=== PATIENT | male | born 1950 | race African-American/Black ===

== ENCOUNTER 2023-03-08 08:53 | Outpatient (CLI) | payer MEDICARE | END 2023-03-08 08:54 | disposition home or self-care (01) | LOC: CSHULT 08:53 | PROVIDERS: ATTEND Family Medicine | DX: K40.90 Unilateral inguinal hernia, without obstruction or gangrene, not specified as recurrent (principal) | CPT/HCPCS: 76856 ==

== ENCOUNTER 2023-11-13 22:32 | Inpatient (IN) | payer MEDICARE ==
[2023-11-14] MEDS ORDERED: Calcium Carbonate 500 MG ChewTAB PO PRN (00:39)
[2023-11-14] MEDS ORDERED: Senokot S 8.6-50 MG TAB PO PRN (00:39)
[2023-11-14] MEDS ORDERED: Guaifenesin DM 100-10/5 ML UDCUP PO PRN (00:39)
[2023-11-14] MEDS ORDERED: Dextrose 5% in Water 1,000 ML IV PRN (00:39)
[2023-11-14] MEDS ORDERED: Glucagon 1 MG/ML KIT IM PRN (00:39)
[2023-11-14] MEDS ORDERED: Ondansetron PF 4 MG/2 ML Vial IVP PRN (00:39)
[2023-11-14] MEDS ORDERED: HumaLOG 300 UNITS/3 ML VIAL SC PRN (00:39)
[2023-11-14] MEDS ORDERED: Sodium Bicarbonate 150 MEQ in Dextrose 5% in Water 1,000 ML IV SCH (00:45)
[2023-11-14] MEDS: Albumin 25% 25 GM (100 mL) BOT IVPB SCH ×4 (02:27→20:58)
[2023-11-14 06:01] LABS: Lactic Acid 0.5 mmol/L (0.5-2.2)
[2023-11-14 06:05] LABS: Anion Gap 19 mmol/L (10-20); BUN (Urea Nitrogen) 103 mg/dL (8.4-25.7); CK (CPK) 2284 U/L (30-200); Calc. Creatinine Clearance 8 mL/min (70-130); Calcium 7.7 mg/dL (7.8-10.44); Carbon Dioxide 17 mmol/L (23-31); Chloride 101 mmol/L (98-107); Estimated GFR 5; Glucose 86 mg/dL (83-110); Potassium 4.8 mmol/L (3.5-5.1); Sodium 132 mmol/L (136-145)
[2023-11-14 06:11] LABS: #Eosinphils 0.1 10x3/uL (0.0-0.5); #Monocytes 0.7 10x3/uL (0.0-1.1); #Neutrophils 3.4 10x3/uL (1.5-8.4); %Basophils 0.2 % (0.0-2.0); %Eosinophils 2.2 % (0.0-6.0); %Lymphocytes 21.9 % (18.0-47.0); %Monocytes 12.2 % (0.0-10.0); %Neutrophils 63.1 % (40.0-75.0); Hematocrit 23.5 % (38.8-50.0); Hemoglobin 7.9 g/dL (13.5-17.5); Mean Corpuscular HGB CONC 33.6 g/dL (32.0-36.0); Mean Corpuscular Hemoglobin 28.1 pg (27.0-33.0); Mean Corpuscular Volume 83.6 fl (81.2-95.1); Mean Platelet Volume 10.4 fl (7.4-10.4); Platelet Count 191 10x3/uL (150-450); Red Blood Cell (RBC) Count 2.81 10x6/uL (4.32-5.72); White Blood Cell (WBC) Count 5.3 10x3/uL (3.5-10.5)
[2023-11-14 07:46] LABS: PTT 32.1 sec (22.0-33.0); Prothrombin Time 10.1 sec (9.5-12.1)
[2023-11-14] MEDS: NIFEdipine XL 90 MG ER.TAB PO SCH ×2 (08:51→09:05)
[2023-11-14] MEDS: Famotidine 20 MG TAB PO SCH (08:51)
[2023-11-14] MEDS: Cholecalciferol 1,000 UNITS (25 MCG) TAB PO SCH ×2 (08:52→09:04)
[2023-11-14] MEDS: hydrALAZINE 25 MG TAB PO SCH ×4 (08:52→20:58)
[2023-11-14] MEDS: Folic Acid/Vit B Comp W-C PO SCH (08:54)
[2023-11-14] MEDS ORDERED: FLU VACC QS2023(65UP)/MF59C/PF 60 MCG/0.5 ML SYRINGE IM ONE (09:00)
[2023-11-14] MEDS ORDERED: Tuberculin PPD 0.1 ML VIAL I-DERMAL SCH ×2 (09:00→23:00)
[2023-11-14] MEDS: Heparin 5,000 UNITS/ML VIAL SC SCH ×4 (09:04→20:59)
[2023-11-14] MEDS: EPOETIN ALFA-EPBX (ESRD) 10,000 UNITS/ML VIAL SC SCH (10:11)
[2023-11-14] MEDS: Rosuvastatin 20 MG TAB PO SCH (20:58)
[2023-11-14] MEDS: Dextrose 50% Abboject 50 ML SYRINGE SLOW IVP PRN (21:13)
[2023-11-14] MEDS: Dextrose 10% in Water 1,000 ML IV SCH (22:57)
[2023-11-15] MEDS ORDERED: Furosemide 40 MG (4 mL) VIAL SLOW IVP SCH (00:15)
[2023-11-15] MEDS ORDERED: Nitroglycerin 2% Ointment 1 INCH/1 GM Packet TOP SCH (01:15)
[2023-11-15 05:00] LABS: HBSAg Index 0.22 S/CO (0-0.99); Hep B Surf Ag Non-Reactive S/CO (NonReactive)
[2023-11-15] MEDS: Dextrose 50% Abboject 50 ML SYRINGE SLOW IVP PRN (06:36)
[2023-11-15] MEDS: Cholecalciferol 1,000 UNITS (25 MCG) TAB PO SCH (06:42)
[2023-11-15] MEDS: Famotidine 20 MG TAB PO SCH (06:43)
[2023-11-15] MEDS: NIFEdipine XL 90 MG ER.TAB PO SCH (06:43)
[2023-11-15 06:47] LABS: Anion Gap 18 mmol/L (10-20); BUN (Urea Nitrogen) 101 mg/dL (8.4-25.7); Calc. Creatinine Clearance 8 mL/min (70-130); Calcium 7.6 mg/dL (7.8-10.44); Carbon Dioxide 20 mmol/L (23-31); Chloride 100 mmol/L (98-107); Estimated GFR 5; Glucose 62 mg/dL (83-110); Potassium 5.2 mmol/L (3.5-5.1); Sodium 133 mmol/L (136-145)
[2023-11-15] MEDS: Heparin 5,000 UNITS/ML VIAL SC SCH ×3 (08:04→21:59)
[2023-11-15] MEDS: Folic Acid/Vit B Comp W-C PO SCH (08:14)
[2023-11-15] MEDS: hydrALAZINE 25 MG TAB PO SCH ×3 (08:35→21:58)
[2023-11-15] MEDS ORDERED: hydrALAZINE 20 MG/ML VIAL SLOW IVP SCH (09:00)
[2023-11-15] MEDS ORDERED: Bupivacaine 0.25% HCL 30 ML VIAL ONE (09:22)
[2023-11-15] MEDS ORDERED: Bupivacaine/Epinephrine 0.25% 30 ML VIAL ONE (10:18)
[2023-11-15] MEDS ORDERED: PROPOFOL 20 ML ONE (10:21)
[2023-11-15] MEDS ORDERED: Lidocaine 2% PF 100 mg/5 ml Syringe ONE (10:21)
[2023-11-15] MEDS ORDERED: Midazolam HCl 2 mg/2 ml Vial ONE (10:22)
[2023-11-15] MEDS ORDERED: fentaNYL 50 mcg/mL 1 mL Vial ONE (10:22)
[2023-11-15] MEDS ORDERED: HYDROcodone/Acetaminophen 5/325 mg Tablet PO PRN (11:57)
[2023-11-15] MEDS ORDERED: Morphine 2 MG/ML VIAL SLOW IVP PRN (11:57)
[2023-11-15 14:18] LABS: HBSAB Concentration Less than 8.00 mIU/mL; Hep B Core Total Ab Non-Reactive (NonReactive); Hep B Surf AB Non-Reactive (NonReactive); Hep C IgG Ab Non-Reactive S/CO (NonReactive); Hep C Index 0.06 S/CO (0-0.79)
[2023-11-15] MEDS: Rosuvastatin 20 MG TAB PO SCH (21:58)
[2023-11-16] MEDS: Dextrose 10% in Water 1,000 ML IV SCH (00:15)
[2023-11-16] MEDS: Cholecalciferol 1,000 UNITS (25 MCG) TAB PO SCH (08:43)
[2023-11-16] MEDS: hydrALAZINE 25 MG TAB PO SCH ×3 (08:44→20:04)
[2023-11-16] MEDS: NIFEdipine XL 90 MG ER.TAB PO SCH (08:46)
[2023-11-16] MEDS: Famotidine 20 MG TAB PO SCH (08:46)
[2023-11-16] MEDS: Folic Acid/Vit B Comp W-C PO SCH (08:47)
[2023-11-16] MEDS: Heparin 5,000 UNITS/ML VIAL SC SCH ×3 (08:48→20:07)
[2023-11-16] MEDS ORDERED: READ PPD TEST SITE PO SCH (09:00)
[2023-11-16 10:17] LABS: Hemoglobin 7.7 g/dL (13.5-17.5)
[2023-11-16 10:37] LABS: Anion Gap 20 mmol/L (10-20); BUN (Urea Nitrogen) 74 mg/dL (8.4-25.7); Calc. Creatinine Clearance 9 mL/min (70-130); Calcium 7.9 mg/dL (7.8-10.44); Carbon Dioxide 21 mmol/L (23-31); Chloride 99 mmol/L (98-107); Estimated GFR 6; Glucose 241 mg/dL (83-110); Potassium 4.8 mmol/L (3.5-5.1); Sodium 135 mmol/L (136-145)
[2023-11-16] MEDS: Acetaminophen 325 MG TAB PO PRN (19:50)
[2023-11-16] MEDS: Rosuvastatin 20 MG TAB PO SCH (20:04)
[2023-11-17] MEDS: Dextrose 10% in Water 1,000 ML IV SCH (01:12)
[2023-11-17] MEDS: Acetaminophen 325 MG TAB PO PRN ×2 (01:42→18:59)
[2023-11-17 04:36] LABS: #Eosinphils 0.2 10x3/uL (0.0-0.5); #Monocytes 1.1 10x3/uL (0.0-1.1); #Neutrophils 5.5 10x3/uL (1.5-8.4); %Basophils 0.1 % (0.0-2.0); %Eosinophils 1.8 % (0.0-6.0); %Lymphocytes 17.3 % (18.0-47.0); %Neutrophils 67.2 % (40.0-75.0); Hematocrit 21.4 % (38.8-50.0); Hemoglobin 7.1 g/dL (13.5-17.5); Mean Corpuscular HGB CONC 33.2 g/dL (32.0-36.0); Mean Corpuscular Hemoglobin 28.4 pg (27.0-33.0); Mean Corpuscular Volume 85.6 fl (81.2-95.1); Mean Platelet Volume 10.1 fl (7.4-10.4); Platelet Count 220 10x3/uL (150-450); RBC Distribution Width 12.8 % (11.5-14.5); White Blood Cell (WBC) Count 8.2 10x3/uL (3.5-10.5)
[2023-11-17 04:45] LABS: Albumin 3.3 g/dL (3.4-4.8); Anion Gap 16 mmol/L (10-20); BUN (Urea Nitrogen) 52 mg/dL (8.4-25.7); BUN/Creatinine Ratio 8.23; Calc. Creatinine Clearance 12 mL/min (70-130); Calcium 7.8 mg/dL (7.8-10.44); Carbon Dioxide 26 mmol/L (23-31); Chloride 100 mmol/L (98-107); Estimated GFR 9; Glucose 148 mg/dL (83-110); Phosphorus 3.8 mg/dL (2.3-4.7); Potassium 4.5 mmol/L (3.5-5.1); Sodium 137 mmol/L (136-145)
[2023-11-17] MEDS: NIFEdipine XL 90 MG ER.TAB PO SCH (08:43)
[2023-11-17] MEDS: hydrALAZINE 25 MG TAB PO SCH ×3 (08:43→21:04)
[2023-11-17] MEDS: Famotidine 20 MG TAB PO SCH (08:44)
[2023-11-17] MEDS: Cholecalciferol 1,000 UNITS (25 MCG) TAB PO SCH (08:44)
[2023-11-17] MEDS: Folic Acid/Vit B Comp W-C PO SCH (08:44)
[2023-11-17] MEDS: Heparin 5,000 UNITS/ML VIAL SC SCH ×3 (08:45→21:06)
[2023-11-17] MEDS: HYDROcodone/Acetaminophen 5/325 mg Tablet PO PRN ×2 (11:36→16:24)
[2023-11-17] MEDS: HumaLOG 300 UNITS/3 ML VIAL SC PRN ×2 (13:16→18:49)
[2023-11-17] MEDS: Rosuvastatin 20 MG TAB PO SCH (21:04)
[2023-11-18] MEDS: Dextrose 10% in Water 1,000 ML IV SCH ×2 (04:15→21:27)
[2023-11-18 06:12] LABS: #Eosinphils 0.2 10x3/uL (0.0-0.5); #Monocytes 1.2 10x3/uL (0.0-1.1); #Neutrophils 5.8 10x3/uL (1.5-8.4); %Basophils 0.3 % (0.0-2.0); %Eosinophils 2.1 % (0.0-6.0); %Lymphocytes 21.2 % (18.0-47.0); %Neutrophils 62.4 % (40.0-75.0); Hematocrit 21.4 % (38.8-50.0); Hemoglobin 7.1 g/dL (13.5-17.5); Mean Corpuscular HGB CONC 33.2 g/dL (32.0-36.0); Mean Corpuscular Hemoglobin 28.6 pg (27.0-33.0); Mean Corpuscular Volume 86.3 fl (81.2-95.1); Mean Platelet Volume 10.3 fl (7.4-10.4); Platelet Count 283 10x3/uL (150-450); Red Blood Cell (RBC) Count 2.48 10x6/uL (4.32-5.72); White Blood Cell (WBC) Count 9.3 10x3/uL (3.5-10.5)
[2023-11-18] MEDS: HYDROcodone/Acetaminophen 5/325 mg Tablet PO PRN ×2 (06:22→15:49)
[2023-11-18 06:27] LABS: Albumin 3.3 g/dL (3.4-4.8); Anion Gap 18 mmol/L (10-20); BUN (Urea Nitrogen) 68 mg/dL (8.4-25.7); BUN/Creatinine Ratio 8.12; Calc. Creatinine Clearance 10 mL/min (70-130); Calcium 8.2 mg/dL (7.8-10.44); Carbon Dioxide 24 mmol/L (23-31); Chloride 98 mmol/L (98-107); Estimated GFR 6; Glucose 122 mg/dL (83-110); Phosphorus 5.5 mg/dL (2.3-4.7); Potassium 4.5 mmol/L (3.5-5.1); Sodium 135 mmol/L (136-145)
[2023-11-18] MEDS: NIFEdipine XL 90 MG ER.TAB PO SCH (08:39)
[2023-11-18] MEDS: Folic Acid/Vit B Comp W-C PO SCH (08:39)
[2023-11-18] MEDS: hydrALAZINE 25 MG TAB PO SCH ×3 (08:39→21:28)
[2023-11-18] MEDS: Famotidine 20 MG TAB PO SCH (08:39)
[2023-11-18] MEDS: Heparin 5,000 UNITS/ML VIAL SC SCH ×3 (08:40→21:26)
[2023-11-18] MEDS: Cholecalciferol 1,000 UNITS (25 MCG) TAB PO SCH (08:40)
[2023-11-18] MEDS: HumaLOG 300 UNITS/3 ML VIAL SC PRN ×2 (12:01→21:27)
[2023-11-18] MEDS: Rosuvastatin 20 MG TAB PO SCH (21:26)
[2023-11-19] MEDS: HYDROcodone/Acetaminophen 5/325 mg Tablet PO PRN ×2 (03:33→20:37)
[2023-11-19 06:07] LABS: #Eosinphils 0.1 10x3/uL (0.0-0.5); #Monocytes 1.3 10x3/uL (0.0-1.1); #Neutrophils 6.2 10x3/uL (1.5-8.4); %Basophils 0.1 % (0.0-2.0); %Eosinophils 1.5 % (0.0-6.0); %Lymphocytes 16.2 % (18.0-47.0); %Monocytes 14.2 % (0.0-10.0); %Neutrophils 67.4 % (40.0-75.0); Hematocrit 24.4 % (38.8-50.0); Mean Corpuscular HGB CONC 32.8 g/dL (32.0-36.0); Mean Corpuscular Hemoglobin 28.2 pg (27.0-33.0); Mean Corpuscular Volume 85.9 fl (81.2-95.1); Mean Platelet Volume 9.8 fl (7.4-10.4); Platelet Count 319 10x3/uL (150-450); RBC Distribution Width 12.9 % (11.5-14.5); Red Blood Cell (RBC) Count 2.84 10x6/uL (4.32-5.72); White Blood Cell (WBC) Count 9.3 10x3/uL (3.5-10.5)
[2023-11-19] MEDS: Heparin 5,000 UNITS/ML VIAL SC SCH ×3 (08:40→20:33)
[2023-11-19] MEDS: NIFEdipine XL 90 MG ER.TAB PO SCH (08:40)
[2023-11-19] MEDS: hydrALAZINE 25 MG TAB PO SCH ×3 (08:41→20:32)
[2023-11-19] MEDS: Famotidine 20 MG TAB PO SCH (08:41)
[2023-11-19] MEDS: Cholecalciferol 1,000 UNITS (25 MCG) TAB PO SCH (08:41)
[2023-11-19] MEDS: Folic Acid/Vit B Comp W-C PO SCH (08:41)
[2023-11-19 09:25] VITALS: BMI 27.3
[2023-11-19] MEDS: HumaLOG 300 UNITS/3 ML VIAL SC PRN ×3 (12:18→21:35)
[2023-11-19] MEDS: Rosuvastatin 20 MG TAB PO SCH (20:33)
[2023-11-19] MEDS: Lantus 1000 UNITS/10 ML VIAL SC SCH (21:34)
[2023-11-19] MEDS: Dextrose 10% in Water 1,000 ML IV SCH (23:10)
[2023-11-20 04:03] LABS: #Eosinphils 0.2 10x3/uL (0.0-0.5); #Monocytes 1.3 10x3/uL (0.0-1.1); #Neutrophils 5.9 10x3/uL (1.5-8.4); %Basophils 0.3 % (0.0-2.0); %Eosinophils 1.6 % (0.0-6.0); %Lymphocytes 20.3 % (18.0-47.0); %Monocytes 13.7 % (0.0-10.0); %Neutrophils 63.4 % (40.0-75.0); Hematocrit 24.9 % (38.8-50.0); Mean Corpuscular HGB CONC 32.1 g/dL (32.0-36.0); Mean Corpuscular Hemoglobin 27.5 pg (27.0-33.0); Mean Corpuscular Volume 85.6 fl (81.2-95.1); Mean Platelet Volume 9.4 fl (7.4-10.4); Platelet Count 348 10x3/uL (150-450); Red Blood Cell (RBC) Count 2.91 10x6/uL (4.32-5.72); White Blood Cell (WBC) Count 9.4 10x3/uL (3.5-10.5)
[2023-11-20] MEDS: Folic Acid/Vit B Comp W-C PO SCH (09:02)
[2023-11-20] MEDS: Cholecalciferol 1,000 UNITS (25 MCG) TAB PO SCH (09:02)
[2023-11-20] MEDS: Heparin 5,000 UNITS/ML VIAL SC SCH ×3 (09:02→21:23)
[2023-11-20] MEDS: hydrALAZINE 25 MG TAB PO SCH ×3 (09:03→21:24)
[2023-11-20] MEDS: Famotidine 20 MG TAB PO SCH (09:03)
[2023-11-20] MEDS: NIFEdipine XL 90 MG ER.TAB PO SCH (09:03)
[2023-11-20] MEDS: HumaLOG 300 UNITS/3 ML VIAL SC PRN (16:55)
[2023-11-20] MEDS: Rosuvastatin 20 MG TAB PO SCH (21:23)
[2023-11-20] MEDS: Lantus 1000 UNITS/10 ML VIAL SC SCH (21:25)
[2023-11-20] MEDS: Dextrose 10% in Water 1,000 ML IV SCH (22:20)
[2023-11-21 06:23] LABS: #Eosinphils 0.1 10x3/uL (0.0-0.5); #Monocytes 1.4 10x3/uL (0.0-1.1); #Neutrophils 6.6 10x3/uL (1.5-8.4); %Basophils 0.2 % (0.0-2.0); %Eosinophils 1.3 % (0.0-6.0); %Lymphocytes 17.5 % (18.0-47.0); %Monocytes 13.7 % (0.0-10.0); %Neutrophils 66.6 % (40.0-75.0); Hematocrit 25.2 % (38.8-50.0); Hemoglobin 8.2 g/dL (13.5-17.5); Mean Corpuscular HGB CONC 32.5 g/dL (32.0-36.0); Mean Corpuscular Hemoglobin 27.9 pg (27.0-33.0); Mean Corpuscular Volume 85.7 fl (81.2-95.1); Mean Platelet Volume 9.2 fl (7.4-10.4); Platelet Count 376 10x3/uL (150-450); RBC Distribution Width 12.8 % (11.5-14.5); Red Blood Cell (RBC) Count 2.94 10x6/uL (4.32-5.72)
[2023-11-21] MEDS: Folic Acid/Vit B Comp W-C PO SCH (10:06)
[2023-11-21] MEDS: hydrALAZINE 25 MG TAB PO SCH ×4 (10:06→21:38)
[2023-11-21] MEDS: Cholecalciferol 1,000 UNITS (25 MCG) TAB PO SCH (10:07)
[2023-11-21] MEDS: Famotidine 20 MG TAB PO SCH (10:07)
[2023-11-21] MEDS: Heparin 5,000 UNITS/ML VIAL SC SCH ×3 (10:08→21:27)
[2023-11-21] MEDS: NIFEdipine XL 90 MG ER.TAB PO SCH (10:08)
[2023-11-21] MEDS: EPOETIN ALFA-EPBX (ESRD) 10,000 UNITS/ML VIAL SC SCH (10:15)
[2023-11-21] MEDS ORDERED: Heparin 10,000 UNITS/ 10 ML VIAL FS PRN (10:54)
[2023-11-21] MEDS ORDERED: Epoetin (ESRD) 10,000 UNITS/ML VIAL IVP PRN ×2 (11:16→12:00)
[2023-11-21 12:01] LABS: Anion Gap 18 mmol/L (10-20); BUN (Urea Nitrogen) 71 mg/dL (8.4-25.7); Calc. Creatinine Clearance 9 mL/min (70-130); Calcium 8.1 mg/dL (7.8-10.44); Carbon Dioxide 22 mmol/L (23-31); Chloride 100 mmol/L (98-107); Estimated GFR 6; Glucose 211 mg/dL (83-110); Potassium 4.7 mmol/L (3.5-5.1); Sodium 135 mmol/L (136-145)
[2023-11-21] MEDS: HYDROcodone/Acetaminophen 5/325 mg Tablet PO PRN (21:28)
[2023-11-21] MEDS: Rosuvastatin 20 MG TAB PO SCH (21:28)
[2023-11-21] MEDS: Lantus 1000 UNITS/10 ML VIAL SC SCH (21:30)
[2023-11-22 04:00] LABS: #Eosinphils 0.1 10x3/uL (0.0-0.5); #Monocytes 1.5 10x3/uL (0.0-1.1); #Neutrophils 4.9 10x3/uL (1.5-8.4); %Basophils 0.4 % (0.0-2.0); %Eosinophils 1.6 % (0.0-6.0); %Lymphocytes 19.4 % (18.0-47.0); %Monocytes 18.1 % (0.0-10.0); %Neutrophils 59.8 % (40.0-75.0); Hematocrit 26.3 % (38.8-50.0); Hemoglobin 8.4 g/dL (13.5-17.5); Mean Corpuscular HGB CONC 31.9 g/dL (32.0-36.0); Mean Corpuscular Hemoglobin 27.7 pg (27.0-33.0); Mean Corpuscular Volume 86.8 fl (81.2-95.1); Mean Platelet Volume 8.9 fl (7.4-10.4); Platelet Count 350 10x3/uL (150-450); RBC Distribution Width 12.5 % (11.5-14.5); Red Blood Cell (RBC) Count 3.03 10x6/uL (4.32-5.72); White Blood Cell (WBC) Count 8.2 10x3/uL (3.5-10.5)
[2023-11-22] MEDS: Cholecalciferol 1,000 UNITS (25 MCG) TAB PO SCH (10:05)
[2023-11-22] MEDS: Heparin 5,000 UNITS/ML VIAL SC SCH (10:05)
[2023-11-22] MEDS: Folic Acid/Vit B Comp W-C PO SCH (10:05)
[2023-11-22] MEDS: hydrALAZINE 25 MG TAB PO SCH (10:07)
[2023-11-22] MEDS: Famotidine 20 MG TAB PO SCH (10:08)
[2023-11-22] MEDS: NIFEdipine XL 90 MG ER.TAB PO SCH (10:08)
[2023-11-22] MEDS: Dextrose 10% in Water 1,000 ML IV SCH (11:29)
[2023-11-22 15:40] VITALS: BP 169/71; TEMP 99.1
[2023-11-22] MEDS ORDERED: Lantus 1000 UNITS/10 ML VIAL SC SCH (21:00)
== END 2023-11-22 13:57 | disposition home or self-care (01) | DRG 674 ==
LOC: CSHTELE 23:34
PROVIDERS: ADMIT Student in an Organized Health Care Education/Training Program; ATTEND Internal Medicine
PROC: 0JH60XZ Insertion of Tunneled Vascular Access Device into Chest Subcutaneous Tissue and Fascia, Open Approach (ICD-10-PCS; principal; 2023-11-15)
PROC: 02HV33Z Insertion of Infusion Device into Superior Vena Cava, Percutaneous Approach (ICD-10-PCS; 2023-11-15)
PROC: B5181ZA Fluoroscopy of Superior Vena Cava using Low Osmolar Contrast, Guidance (ICD-10-PCS; 2023-11-15)
PROC: 5A1D70Z Performance of Urinary Filtration, Intermittent, Less than 6 Hours Per Day (ICD-10-PCS; 2023-11-15)
DX: N17.9 Acute kidney failure, unspecified (principal); E87.1 Hypo-osmolality and hyponatremia; I12.0 Hypertensive chronic kidney disease with stage 5 chronic kidney disease or end stage renal disease; E87.20 Acidosis, unspecified; N18.6 End stage renal disease; E11.22 Type 2 diabetes mellitus with diabetic chronic kidney disease; E11.649 Type 2 diabetes mellitus with hypoglycemia without coma; E87.5 Hyperkalemia; D63.1 Anemia in chronic kidney disease; G47.33 Obstructive sleep apnea (adult) (pediatric); Z79.84 Long term (current) use of oral hypoglycemic drugs; Z79.899 Other long term (current) drug therapy; Z98.890 Other specified postprocedural states; Z83.3 Family history of diabetes mellitus; E78.2 Mixed hyperlipidemia
CPT/HCPCS: 36415; 36416; 36430; 71045; 80048; 80069; 82533; 82550; 83605; 83880; 84443; 85014; 85018; 85025; 85610; 85730; 86580; 86704; 86850; 86900; 86901; 87040; 90471; 90694; 90935; 93005; 93010; 93970; 94760; C1752; G0008; G0257; J0360; J1642; J1644; J1815; J1940; J2001; J2250; J2704; J3010; J7070; J7999; P9016; P9047; Q5105; S0020